=== PATIENT | male | born 1985 ===

== ENCOUNTER 2016-09-28 12:03 | Inpatient (IN) ==
--- NOTE | 2016-09-28 12:36 | Emergency Department Note ---
Hemanth Marquez Brittany, am scribing for, and in the presence of, Shelly Gamez DO 12:35. Franco Marquez Debra, DO, personally performed the services described in this documentation, ascribed by Jaqueline Saxena in my presence, and it is both accurate and complete . Arrival - Arrival Chief Complaint: Abdominal / Flank Pain Stated Complaint: abdominal pain ED Nursing Triage Note: PT TRANSFERRED FROM [facility] FOR EVALUATION OF POSSIBLE APPENDICITIS. PT C/O RLQ ABD PAIN X2 DAYS, WORSE SINCE MIDNIGHT. Mode of Arrival: Stretcher Limitations: No Limitations Source: Patient, RN Notes Reviewed - History of Present Illness HPI Narrative: Patient is a 30 y/o [place] male presenting to the ED from [facility] for further evaluation of possible Appendicitis. Patient reports that he has been having some point RLQ abdominal pain for the past two days, worsening this morning at 0200. He states that at that time he could not get adequate rest due to pain and decided to present to [facility] at 0600. He has had some associated nauesa, but denies any vomiting or diarrhea. Patient states that he has been using an ab roller lately to work out and believes that he may have torn a muscle or had some other type of abdominal injury. He has no other complaint/pain. Allergies/Adverse Reactions: Allergies Allergy/AdvReac Type Severity Reaction Status Date / Time No Known Allergies Allergy Verified 09/28/16 12:22 Home Medications: Home Medications Medication Instructions Recorded Confirmed Type No Known Home Medications [No 09/28/16 09/28/16 History Known Home Medications] Review of System - Review of System 12 point system: reviewed and no additional remarkable complaints except as stated - Review of System Gastrointestinal: Present: as per HPI, abdominal pain, nausea. Absent: vomiting Medical,Surgical,& Family Hx - Surgical History Orthopedic Surgeries: Surgical HX of;: Orthopedic Surgery (RIGHT ACL REPAIR) - Social History Smoking Status: Never smoker Frequency of Alcohol Use: Occasionally Type of Drug Use: None Exam Vital Signs: Vital Signs Temperature 97.2 F L 09/28/16 12:03 Pulse Rate 68 09/28/16 12:03 Respiratory Rate 18 09/28/16 12:03 Blood Pressure 131/99 09/28/16 12:03 O2 Sat by Pulse Oximetry 99 04/30/17 12:03 - General General appearance: alert, in no apparent distress - Head Head exam: Present: atraumatic, normocephalic, normal inspection - Eye Eye exam: Present: normal appearance, PERRL, EOMI - ENT ENT exam: Present: normal exam, normal oropharynx - Neck Neck exam: Present: normal inspection, full ROM, trachea midline - Chest Chest inspection: Present: normal inspection, symmetric chest wall rise - Respiratory Respiratory exam: Present: normal lung sounds bilaterally. Absent: rales, rhonchi, wheezes - Cardiovascular Cardiovascular exam: Present: regular rate, normal rhythm, normal heart sounds. Absent: murmur, rubs, gallop - Abdominal Exam Abdominal exam: Present: soft, tenderness (RLQ), normal bowel sounds. Absent: distention, guarding, rebound - Extremities Exam Extremities exam: Present: normal inspection - Back Exam Back exam: Present: normal inspection - Neurological Exam Neurological exam: Present: alert, oriented X3, CN II-XII intact. Absent: motor sensory deficit - Psychiatric Psychiatric exam: Present: normal affect, normal mood - Skin Skin exam: Present: warm, dry, intact, normal color Course Course Narrative: spoke with DR Bertrand re pts ct report and clinical eval. pt will be taken to surgery . he is stable at this time. Results - Diagnostic Findings Procedure: Ultrasound: report reviewed by me (Unremarkable right upper quadrant ultrasound.) Disposition Clinical Impression: Acute appendicitis Case discussed with: patient Disposition: Still a Patient Condition: Stable Time of Disposition: 15:36
--- NOTE | 2016-09-28 14:06 | Ultrasound Report ---
US gallbladder Indication: Right upper quadrant abdominal pain. Comparison: Outside hospital CT abdomen pelvis. Technique: Multiple longitudinal and transverse real-time sonographic images of the right upper quadrant of the abdomen are obtained. Findings: The liver measures 17.5 cm and demonstrates normal echogenicity without focal abnormality. The gallbladder is normal in size and demonstrates no wall thickening, abnormal intraluminal echoes, or pericholecystic fluid. The sonographic Amos's sign is negative. The common duct measures 0.49 cm in diameter and there is no evidence of intrahepatic ductal dilation. Amos's sign is negative. There is no ascites. The proximal pancreas appears within normal limits. Distal pancreas is obscured. Right kidney measures 11.3 cm craniocaudal dimension and appears normal. There is not her nephrosis. IMPRESSION: Unremarkable right upper quadrant ultrasound. Ultrasound images were captured and stored. PROCEDURE INTERPRETED AT [facility] DEPARTMENT OF RADIOLOGY Final Report Signed by: Mickey Perez
[2016-09-28] MEDS ORDERED: PIPERACILLIN/TAZOBACTAM 3,375 MG in SODIUM CHLORIDE 0.9% 100 ML IV STA (14:29)
[2016-09-28] MEDS ORDERED: metroNIDAZOLE INJ 500 MG in PREMIX 1 EACH IV STA (14:29)
[2016-09-28] MEDS ORDERED: SODIUM CHLORIDE 0.9% 1,000 ML IV STA (14:29)
[2016-09-28] MEDS ORDERED: ONDANSETRON 4 MG/2 ML VIAL IV STA (14:30)
[2016-09-28] MEDS ORDERED: HYDROmorphone 2 MG/1 ML VIAL IV STA (14:30)
[2016-09-28] MEDS ORDERED: metroNIDAZOLE 500 MG/100 ML PREMIX IV ONE (15:10)
[2016-09-28] MEDS ORDERED: ONDANSETRON 4 MG/2 ML VIAL ONE (15:10)
[2016-09-28] MEDS ORDERED: HYDROmorphone 2 MG/1 ML VIAL ONE (15:10)
--- NOTE | 2016-09-28 15:37 | General Surg History&Physical ---
Assessment and Plan (1) Abdominal pain Status: Acute Assessment and plan: Impression: Probable acute appendicitis Plan: I reviewed the outside labs which appeared largely normal. White blood cell count was normal. I reviewed the CT images and it appeared to me that the appendix did not look dilated but there was stranding around the appendix suggesting inflammatory change. I discussed this with Dr. Perez in radiology who agrees. Neither of us see any other etiology of the right lower quadrant abdominal pain. I suspect this is early acute appendicitis. I discussed options of treatment with the patient including diagnostic laparoscopy with appendectomy versus antibiotics and admission. Patient would like to just proceed with appendectomy. We discussed the risks benefits and alternatives of both options. The risks of bleeding, infection, damage to surrounding structures, leaking of the staple line, non-therapeutic procedure were all discussed in detail and he wants to proceed. Current Visit: Yes History of Present Illness Chief complaint: Abdominal pain History of present illness: Mr. Solo is a 30 year old male with a 2 day history of progressively worsening right lower quadrant pain. Patient denies pain in any other location. He states the pain has been slowly worsening. He has had some nausea. He denies any other medical problems. He says he works out and has a pretty strenuous job. He has no shortness of breath or chest pain. He has not noticed any change in bowel habits. He was transferred to our emergency room after a CT scan was performed at an outside facility. I do not have the radiology report but review of the notes suggest he was sent because the appendix appeared mildly dilated. He was told he needed an ultrasound from the outside facility. That right upper quadrant ultrasound shows no pathology. Home Medications Medication Instructions Recorded Confirmed Type No Known Home Medications [No 09/28/16 09/28/16 History Known Home Medications] Allergies Allergy/AdvReac Type Severity Reaction Status Date / Time No Known Allergies Allergy Verified 09/28/16 12:22 Medical,Surgical,& Family Hx - Medical History Medical History: noncontributory - Surgical History Orthopedic Surgeries: Surgical HX of;: Orthopedic Surgery (RIGHT ACL REPAIR) - Social History Smoking Status: Never smoker Frequency of Alcohol Use: Occasionally Type of Drug Use: None Exam - Constitutional Vitals: Period Temp Pulse Resp BP Sys/Almanzar Pulse Ox Last 24 Hr 97.2 F 68 18 131/99 99 General appearance: no acute distress - Head Head exam: Present: normocephalic - ENT Mouth exam: Present: normal external inspection - Neck Neck exam: Present: normal inspection - Respiratory Respiratory exam: Present: clear to auscultation bilaterally - Cardiovascular Cardiovascular exam: Present: RRR - GI/Abdominal GI/Abdominal exam: Present: soft (Very tender to palpation in the right lower quadrant with localized rebound. He has a positive Rovsing.) - Extremities Exam Extremities exam: Present: normal inspection - Back Exam Back exam: Present: normal inspection - Neurological Exam Neurological exam: Present: alert Speech: Present: normal - Skin Skin exam: Present: normal color 12 point system: reviewed and no additional remarkable complaints except as stated Results - Labs Lab Results: I have reviewed the past 24 hour labs (Review the labs from the outside facility)
[2016-09-28] MEDS ORDERED: ACETAMINOPHEN 500 MG TABLET PO STA (16:01)
[2016-09-28] MEDS ORDERED: BUPIVACAINE MPF 0.25% /EPI 30 ML VIAL ONE (16:07)
[2016-09-28] MEDS ORDERED: LIDOCAINE 1%/EPI INJ 20 ML VIAL ONE (16:07)
[2016-09-28] MEDS ORDERED: ACETAMINOPHEN 500 MG TABLET ONE (16:13)
[2016-09-28] MEDS ORDERED: GABAPENTIN 100 MG CAPSULE ONE (16:13)
[2016-09-28] MEDS ORDERED: GABAPENTIN 300 MG CAPSULE ONE (16:13)
[2016-09-28] MEDS: GABAPENTIN 400 MG CAPSULE PO SCH (16:15)
[2016-09-28] MEDS ORDERED: PIPERACILLIN/TAZOBACTAM 3,375 MG VIAL IV ONE (16:43)
[2016-09-28] MEDS ORDERED: MORPHINE 2 MG/1 ML SYRINGE IV PRN (17:35)
[2016-09-28] MEDS ORDERED: ONDANSETRON 4 MG/2 ML VIAL IV PRN (17:35)
[2016-09-28] MEDS ORDERED: ACETAMINOPHEN 325 MG TABLET PO PRN (17:35)
--- NOTE | 2016-09-28 17:40 | Operative Note ---
Date of procedure: 09/28/16 Pre-op diagnosis: Acute appendicitis Post-op diagnosis: same (Hyperemic appendix) Procedure: Procedure performed: Laparoscopic appendectomy Procedure in detail: After informed consent was obtained, the patient was taken operating suite placed upon the operating table. After general anesthesia was induced the abdomen was prepped and draped in usual sterile fashion. After procedural pause local anesthetic and intravenous skin and subcutaneous tissue above the umbilicus. Incision made and dissection carried down through skin and soft tissue. Fascia grasped with Corina's and elevated fascial incision was made in the abdominal cavity was entered bluntly. Finger sweep revealed no adhesions. Montelongo trocar was placed under visualization. Pneumoperitoneum achieved. The camera inserted bowel mesentery inspected found to be free of any violation. Next the patient was placed in reverse Trendelenburg position rotated to the left. 5 mm suprapubic left lower quadrant trochars were placed under visualization. In the right lower quadrant the appendix appeared hyperemic compared to the surrounding bowel. There was some lymph nodes or other nodules within the mesoappendix easily seen. The appendix was grasped and elevated. Window was created in the mesentery at the base the appendix and the appendiceal base transected using a CHARLIE stapling device with vascular load. Mesoappendix was transected in the same fashion and the appendix placed in the Endo Catch sac. Right lower quadrant irrigated and suctioned there was good hemostasis and the staple lines inspected and found to be intact. There is no other pathology identified. Bowel and colon appeared normal in the right lower quadrant. There is no hernia identified. The trochars and Endo Catch sac was removed as the abdomen desufflated. Fascia at the Montelongo trocar site closed using 0 Vicryl [id number] interrupted suture. Wounds irrigated and suctioned skin closed with marguerite. Sterile dressings applied. Patient was extubated and taken recovery room in stable condition. All lap and needle counts correct at the end of the case. Anesthesia: GETA Surgeon / Physician: Ronnie Kraus Estimated blood loss: other (Less than 10 cc) Specimens: none sent Condition: stable Disposition: PACU Discharge Plan - Discharge Data Disposition: Still a Patient - Discharge Medications No Action No Known Home Medications [No Known Home Medications] - Follow Up or Referral - Forms/Instructions
[2016-09-28] MEDS ORDERED: ROCURONIUM 100 MG/10 ML VIAL IV ONE (18:49)
[2016-09-28] MEDS ORDERED: LIDOCAINE 2% 5 ML VIAL MISC INJ ONE (18:49)
[2016-09-28] MEDS ORDERED: PROPOFOL 200 MG/20 ML VIAL IV ONE (18:49)
[2016-09-28] MEDS ORDERED: KETOROLAC 30 MG/1 ML VIAL IV ONE (18:49)
[2016-09-28] MEDS ORDERED: ONDANSETRON 4 MG/2 ML VIAL IV ONE (18:49)
[2016-09-28] MEDS ORDERED: GLYCOPYRROLATE 0.4 MG/2 ML VIAL IV ONE (18:49)
[2016-09-28] MEDS ORDERED: NEOSTIGMINE 10 MG/10 ML VIAL IV ONE (18:49)
[2016-09-28] MEDS ORDERED: fentaNYL 100 MCG/2 ML VIAL ONE (18:54)
[2016-09-28] MEDS ORDERED: SEVOFLURANE 1 UNIT/15 MINUTE INH ONE (18:54)
[2016-09-28] MEDS ORDERED: LACTATED RINGERS 1,000 ML IV ONE (18:54)
[2016-09-28] MEDS ORDERED: MIDAZOLAM 2 MG/2 ML VIAL ONE (18:54)
--- NOTE | 2016-09-28 19:50 | Anesthesia Post-Op ---
Anesthesia Post OP - Post Ansesthetic Evaluation Patient seen in post op: Yes Resp: within normal limits CV: within normal limits Mental: within normal limits Temp: within normal limits [id number]-[id number]-[id number]: within normal limits Nausea and Vomiting: within normal limits Pain: within normal limits
[2016-09-29] MEDS: PIPERACILLIN/TAZOBACTAM 3,375 MG in SODIUM CHLORIDE 0.9% 100 ML IV SCH ×3 (00:41→17:00)
--- NOTE | 2016-09-29 08:47 | Event Note ---
Status post lap appendectomy. Afebrile vital signs stable. Patient is doing well. He would like to go home. His pain is resolved. He has some incisional pain that has been well controlled. His abdomen is soft appropriately tender nondistended and the incisions look okay. Will discharge home. Discharge instructions were given. Follow-up in 2 weeks
--- NOTE | 2016-09-29 08:49 | Discharge Summary ---
Hospital Course - Hospital Course Hospital Course: Patient presented with right lower quadrant pain underwent appendectomy. Feeling better. Tolerating diet. Pain is controlled. He is for discharge today. Diagnosis - Discharge Diagnosis (1) Abdominal pain Status: Acute Discharge Plan - Discharge Medications New HYDROcodone/ACETAMIN 7.5-325 [[place] 7.5-325] 2 tablet PO Q4H PRN #40 tablet PRN Reason: Pain Moderate (4-7) - Follow Up or Referral - Forms/Instructions Exam - Constitutional Vitals: Period Temp Pulse Resp BP Sys/Almanzar Pulse Ox Last 24 Hr 97.0 F-98.3 F 51-96 12-20 97-140/52-85 96-100 DS: Provider Date of admission: 09/28/16 17:35 Primary care physician: Johny Mckee MD Attending physician on admission: Ronnie Kraus MD Discharging clinician: Ronnie Kraus MD
[2016-09-29] MEDS ORDERED: PANTOPRAZOLE 40 MG TABLET PO SCH (09:00)
[2016-09-29] MEDS: GABAPENTIN 400 MG CAPSULE PO SCH (09:42)
[2016-09-29 20:51] VITALS: BP 127/72
--- NOTE | 2016-09-30 11:17 | Pathology Report from [facility] ---
ACCESSION # : [id number] PATIENT NAME : MELANIE Solo Willie M. ORDERING DR : Ronnie Kraus MD CLINICAL HX: Acute appendicitis POST-OP DX: Same SPECIMEN INFO: Appendix GROSS DESCRIPTION: The specimen is received in formalin labeled with the patient 's name and consists of an appendix with attached appendiceal fat. The appendix measures 8.2 x 0.7 cm. The serosa is nunez-sharif with adhesions present. Within the appendiceal fat is a 0.9 x 0.7 cm light brown fatty slightly firm nodule. The lumen contains hemorrhagic semisolid material. No definite fecaliths or perforations identified. [employer] sections submitted in one cassette. DIAGNOSIS FOR NAOMI SOLO III: APPENDIX, APPENDECTOMY: Acute suppurative appendicitis. SERVICE DATE: 09/29/2016 REPORT DATE: 09/30/2016 PATHOLOGIST: Melecio Good M.D. MTDD
== END 2016-09-29 18:50 | disposition home or self-care (01) | DRG 343 ==
LOC: EDUNIT# → N.ED 12:03 → N.3E 12:03 → OBSVTOIN 17:35 → N.3E 18:54
PROVIDERS: ADMIT Surgery; ATTEND Surgery